=== PATIENT | female | born 1990 | race Caucasian/White ===

== ENCOUNTER 2016-11-21 21:07 | Emergency (ER) | payer BC ==
[~2016-11-21] VITALS: Ht 172.7 cm; Wt 110.4 kg
[2016-11-21 21:38] LABS: HEMATOCRIT 41.4 % (36.0-46.0); MCH 27.8 PG (29.0-34.0); MCHC 32.9 G/DL (30.0-36.0); MCV 84.5 FL (83-99); MEAN PLAT.VOLUME 10.1 uM^3 (9.5-12.4); PLATELET COUNT 276 K/uL (156-360); RBC DIS.WIDTH-CV 13.1 % (11.8-14.6); RBC DIS.WIDTH-SD 40.3 % (39-53); WHITE BLOOD COUNT 10.2 K/uL (4.1-10.2)
[2016-11-21 21:47] LABS: CHLORIDE 104 mEq/L (99-109); POTASSIUM 3.9 mEq/L (3.7-5.4); SODIUM 140 mEq/L (136-147)
[2016-11-21 21:49] LABS: GLUCOSE 79 mg/dL (70-99)
[2016-11-21 21:51] LABS: ANION GAP 11 MEQ/L (2-14); TOTAL BILIRUBIN 0.3 mg/dL (0.0-1.0)
[2016-11-21 21:53] LABS: ALKALINE PHOSPHATASE 73 IU/L (3-129); GFR ESTIMATE (CALCULATED) > 59 mL/min/
[2016-11-21 21:54] LABS: UREA NITROGEN (BUN) 11 mg/dL (9-23)
[2016-11-21 21:56] LABS: LIPASE 14 U/L (1.0-51.0)
[2016-11-21 22:02] LABS: QUANTITATIVE HCG < 4.0 MIU/ML
[2016-11-21 22:22] LABS: ADD MIUA? YES; BILIRUBIN NEGATIVE; BLOOD NEGATIVE; COLOR YELLOW ((YELLOW)); GLUCOSE (STRIP) NEGATIVE; KETONES NEGATIVE; LEUKOCYTES SMALL; NITRITE NEGATIVE; PROTEIN (STRIP) NEGATIVE; SPECIFIC GRAVITY 1.019 (1.000-1.030); UROBILINOGEN 0.2 MG/DL (0.2-1.0)
[2016-11-21 22:33] LABS: BACTERIA 2+ /HPF; EPITHELIAL CELLS 1+ /HPF; MUCUS 1+ /LPF; RED BLOOD CELLS 0-5 /HPF (0-5); UCUL ADDED? NO; WHITE BLOOD CELLS 0-5 /HPF (0-5)
[2016-11-21] MEDS ORDERED: ATARAX,VISTARIL25 MG PO (23:09)
[2016-11-22 00:14] VITALS: BP 110/89
== END 2016-11-22 00:14 | disposition home or self-care (01) ==
LOC: EME 21:07
PROVIDERS: Physician Assistant
DX: R10.11 Right upper quadrant pain (principal); F41.9 Anxiety disorder, unspecified; S29.011D Strain of muscle and tendon of front wall of thorax, subsequent encounter; F17.200 Nicotine dependence, unspecified, uncomplicated; E28.2 Polycystic ovarian syndrome; K59.00 Constipation, unspecified; E03.9 Hypothyroidism, unspecified
CPT/HCPCS: 80053; 81003; 83690; 84443; 84702; 85027; 87086; 99281; 99283; Q0177

== ENCOUNTER 2017-04-23 22:15 | Inpatient (IN) | payer BC ==
[~2017-04-23] VITALS: Ht 172.7 cm; Wt 117.1 kg
[~2017-04-23 22:15] MED LIST: ATARAX,VISTARIL25 MG PO
[2017-04-24 04:42] LABS: EOSINOPHIL (%) 4.2 % (0-5); EOSINOPHIL COUNT 0.5 K/uL (0-0.3); HEMATOCRIT 40.8 % (36.0-46.0); IMMATURE GRANULOCYTE (%) 0.4 % (0.0-0.7); IMMATURE GRANULOCYTE COUNT 0.1 K/uL; INSTRUMENT ABS NEUTROPHIL CT 7.8 K/uL; LYMPHOCYTE COUNT 2.6 K/uL (1.0-2.8); MCHC 32.6 G/DL (30.0-36.0); MCV 85.9 FL (83-99); MONOCYTE (%) 4.5 % (3-12); MONOCYTE COUNT 0.5 K/uL (0-0.8); NEUTROPHIL (%) 68.1 % (45-76); NEUTROPHIL COUNT 7.8 K/uL (1.8-6.4); PLATELET COUNT 207 K/uL (156-360); RBC DIS.WIDTH-CV 12.7 % (11.8-14.6); RBC DIS.WIDTH-SD 39.8 % (39-53); RED BLOOD COUNT 4.75 M/uL (3.80-5.20); WHITE BLOOD COUNT 11.5 K/uL (4.1-10.2)
[2017-04-24 04:51] LABS: CHLORIDE 106 mEq/L (99-109); POTASSIUM 2.8 mEq/L (3.7-5.4); SODIUM 141 mEq/L (136-147)
[2017-04-24 04:53] LABS: GLUCOSE 139 mg/dL (70-99)
[2017-04-24 04:54] LABS: ANION GAP 12 MEQ/L (2-14)
[2017-04-24 04:56] LABS: GFR ESTIMATE (CALCULATED) > 59 mL/min/
[2017-04-24 04:57] LABS: UREA NITROGEN (BUN) 8 mg/dL (9-23)
[2017-04-24 07:57] VITALS: BP 136/77
[2017-04-24] MEDS ORDERED: LEVOTHYROXINE125 MCG PO (12:34)
[2017-04-24] MEDS ORDERED: ZYRTEC10 M3 PO (12:35)
[2017-04-24] MEDS ORDERED: STRATTERA40 MG PO (12:38)
[2017-04-24 13:28] VITALS: BP 139/70
[2017-04-24 17:13] VITALS: BP 137/74
[2017-04-24 20:26] VITALS: BP 145/80
[2017-04-24 23:40] VITALS: BP 127/65
[2017-04-25 03:17] VITALS: BP 128/71
[2017-04-25 08:00] VITALS: BP 127/70
[2017-04-25 12:00] VITALS: BP 113/68
[2017-04-25] MEDS ORDERED: MONTELUKAST SOD10 MG PO (12:32)
[2017-04-25] MEDS ORDERED: PREDNISONE10 MG PO (12:32)
[2017-04-25] MEDS ORDERED: ADVAIR HFA120 INHALA IH (12:32)
[2017-04-25] MEDS ORDERED: LEVAQUIN500 MG PO (12:32)
== END 2017-04-25 13:12 | disposition home or self-care (01) | DRG 203 ==
LOC: EME 22:15 → 4SOUTH 04-24 04:30 → EDOF 04-24 04:30 → CANRESERV 04-24 04:54 → ENRESERV 04-24 04:54 → 4SOUTH 04-24 12:44
PROVIDERS: Emergency Medicine
DX: J45.902 Unspecified asthma with status asthmaticus (principal); J06.9 Acute upper respiratory infection, unspecified; F17.200 Nicotine dependence, unspecified, uncomplicated; E03.9 Hypothyroidism, unspecified; F41.9 Anxiety disorder, unspecified; E28.2 Polycystic ovarian syndrome; K58.0 Irritable bowel syndrome with diarrhea; F12.90 Cannabis use, unspecified, uncomplicated; Z91.19 Patient's noncompliance with other medical treatment and regimen; Z82.49 Family history of ischemic heart disease and other diseases of the circulatory system
CPT/HCPCS: 71020; 80048; 85025; 94640; 94640 76; 99202; 99281; 99285; J1100; J1956; J2405; J2930; J3475; J7030; J7512